=== PATIENT | female | born 1995 | race Caucasian/White ===

== ENCOUNTER 2017-09-29 12:39 | Emergency (ER) | payer OTHER ==
[2017-09-29 13:53] VITALS: BP 118/65
--- NOTE | 2017-09-29 14:16 | UC ---
Throat Pain/Nasal Marcos HPI - HPI Summary HPI Summary: Pt c/o nasal congestion, cough, sore throat that is worse in the morning. - History of Current Complaint Chief Complaint: UCGeneralIllness Stated Complaint: CONGESTION,SORE THROAT,NAUSEA Time Seen by Provider: 09/29/17 13:57 Hx Obtained From: Patient ?: Yes - 8 weeks Onset/Duration: Lasting Days Severity: Moderate Pain Intensity: 6 Cough: Nonproductive Associated Signs & Symptoms: Positive: Dysphagia - Epiglottits Risk Factors Epiglottis Risk Factors: Negative - Allergies/Home Medications Allergies/Adverse Reactions: Allergies Allergy/AdvReac Type Severity Reaction Status Date / Time amoxicillin Allergy Severe Anaphylatic Verified 09/29/17 13:54 Shock Home Medications: Home Medications [id number]/Iron Fum/Folic/Docusate [ 19 Tablet] 1 tab PO DAILY 09/29/17 [ History Confirmed 09/29/17] PMH/Surg Hx/FS Hx/Imm Hx Previously Healthy: Yes - Surgical History Surgical History: Yes Surgery Procedure, Year, and Place: tonsilectomy - Family History Known Family History: Positive: Cardiac Disease - Social History Occupation: Employed Full-time Lives: With Family Alcohol Use: None Substance Use Type: None Smoking Status (MU): Light Every Day Tobacco Smoker Type: Cigarettes Amount Used/How Often: 1/2 ppd Length of Time of Smoking/Using Tobacco: 3 yrs Have You Smoked in the Last Year: Yes - Immunization History Vaccination Up to Date: Yes Review of Systems Constitutional: Negative Skin: Negative Eyes: Negative ENT: Sore Throat, Sinus Congestion Respiratory: Cough Cardiovascular: Negative Gastrointestinal: Negative Genitourinary: Negative Motor: Negative Neurovascular: Negative Musculoskeletal: Negative Neurological: Negative Psychological: Negative Is Patient Immunocompromised?: No All Other Systems Reviewed And Are Negative: Yes Physical Exam Triage Information Reviewed: Yes Appearance: Well-Appearing Vital Signs: Initial Vital Signs Temp 98.0 F 09/29/17 13:50 Pulse 107 09/29/17 13:50 Resp 20 09/29/17 13:50 BP 118/65 09/29/17 13:50 Pulse Ox 99 09/29/17 13:50 Vital Signs Reviewed: Yes Eye Exam: Normal ENT Exam: Other ENT: Positive: Nasal congestion Dental Exam: Normal Neck exam: Normal Respiratory Exam: Normal Cardiovascular Exam: Normal Musculoskeletal Exam: Normal Neurological Exam: Normal Psychological Exam: Normal Skin Exam: Normal Diagnostics - Laboratory Diagnostic Studies Completed/Ordered: rapid strep: negative Throat Pain/Nasal Course/Dx - Differential Dx/Diagnosis Differential Diagnosis/HQI/PQRI: Influenza, Pharyngitis, URI Provider Diagnoses: Sore throat. URI. seasonal allergies Discharge - Sign-Out/Discharge Documenting (check all that apply): Discharge - Discharge Plan Condition: Stable Disposition: HOME Prescriptions: LoraTADine TAB(NF) [Claritin 10 MG TAB(NF)] 10 mg PO DAILY #10 tab Patient Education Materials: Pharyngitis (ED), Allergies (ED) Forms: *Work Release Referrals: Saundra Hauser MD [Primary Care Provider] - - Billing Disposition and Condition Condition: STABLE Disposition: HOME
== END 2017-09-29 14:29 | disposition home or self-care (01) ==
LOC: UCCORT 12:39
DX: Z88.0 Allergy status to penicillin (principal); J02.9 Acute pharyngitis, unspecified; J06.9 Acute upper respiratory infection, unspecified; J30.2 Other seasonal allergic rhinitis
CPT/HCPCS: 87651; 99212; G0463